=== PATIENT | female | born 1935 | race Caucasian/White ===

== ENCOUNTER 2024-07-17 13:46 | Observation (INO) | payer MEDICARE ==
[~2024-07-17] VITALS: Ht 162.6 cm; Wt 60.0 kg
[~2024-07-17 13:46] MED LIST: ASPI325 PO
[2024-07-17 14:27] LABS: BASOPHILS ABSOLUTE AUTO 0.07 K/mm3 (0.00-0.23); BASOPHILS PERCENT AUTO 1 % (0-2); EOSINOPHILS ABSOLUTE AUTO 0.09 K/mm3 (0.00-0.68); EOSINOPHILS PERCENT AUTO 1 % (0-6); Hematocrit 45.1 % (33.0-51.0); IMMATURE GRAN ABSOLUTE AUTO 0.08 K/mm3 (0.00-0.10); IMMATURE GRAN PERCENT AUTO 1 % (0-1); LYMPHOCYTES ABSOLUTE AUTO 1.13 K/mm3 (0.84-5.20); LYMPHOCYTES PERCENT AUTO 9 % (21-46); MONOCYTES ABSOLUTE AUTO 0.82 K/mm3 (0.16-1.47); MONOCYTES PERCENT AUTO 6 % (4-13); Mean Corpuscular HGB 24.6 pg (26.0-34.0); Mean Corpuscular Volume 79 fL (80-100); Mean Platelet Volume 12.1 fL (9.1-12.4); NEUTROPHILS PERCENT AUTO 83 % (41-73); Platelet Count 350 K/mm3 (150-400); RDW Coefficient Variation 14.9 % (11.7-14.2); RDW Standard Deviation 42.4 fL (35.1-46.3); White Blood Cell Count 13.19 K/mm3 (4.00-11.30)
[2024-07-17 14:41] LABS: Albumin, Blood 2.9 g/dL (3.4-5.0); Albumin/Globulin Ratio 0.7 (0.8-1.8); Bilirubin, Total 0.7 mg/dL (0.1-1.0); Bun/Creatinine Ratio 20.8 (12.0-20.0); Calcium, Blood 9.6 mg/dL (8.5-10.1); Creatinine, Blood 0.63 mg/dL (0.40-1.00); Globulin, Blood 3.9 g/dL (2.2-4.0); Potassium, Blood 4.5 mmol/L (3.5-5.5); Total Protein, Blood 6.8 g/dL (6.4-8.2)
[2024-07-17 16:11] LABS: Source, Urine Clean Catch
[2024-07-17 16:15] LABS: Appearance, Urine Clear (Clear); Bilirubin, Urine Neg (Neg); Blood, Urine 1+ (Neg); Color, Urine Yellow (P-Yellow); Glucose Qualitative, Urine Neg (Neg); Ketones, Urine 3+ (Neg); Leukocyte Esterase, Urine 1+ (Neg); Nitrite, Urine Neg (Neg); Protein, Urine 2+ (Neg); Urobilinogen, Urine NORM (Normal); pH, Urine 6.5 (5.0-8.0)
[2024-07-17 16:24] LABS: Bacteria Mod /hpf; Mucus Light (0-Heavy); Squamous Epithelial Cells Few /hpf (Few)
[2024-07-17] MEDS ORDERED: Morphine Sulfate 4 MG/1 ML Injection IV ONE (17:00)
[2024-07-17] MEDS ORDERED: Ondansetron HCl 2 MG / ML 2ML Vial IV PRN (18:05)
[2024-07-17] MEDS ORDERED: HYDROcodone 5-APAP 325 TAB PO PRN (18:05)
[2024-07-17] MEDS ORDERED: FLU VACC TS2024-25(6MOS UP)/PF 45 MCG/0.5 ML SYRINGE IM SCH (18:10)
[2024-07-17 20:54] VITALS: BP 141/63
[2024-07-17] MEDS ORDERED: Ondansetron 4 MG TAB PO PRN (21:55)
--- NOTE | 2024-07-18 06:21 | NUR ---
SHIFT SUMMARY ARRIVAL TO UNIT 07/17/24 APPROX. 2049. PT REFUSING IV, NO-SLIP SOCKS, OR HOSPITAL GOWN. NO IV ORDER APPROVED BY DR. MUIR. PT STATES SHE USES A CAN AT [facility]. FWW PROVIDED. PT ON FALL PRECAUTIONS DT HX OF FALLS AND CONFUSION. 2228, PT UP TO BATHROOM. EDUCATED ON PULL CORD IN BATHROOM TO ASSIST HER BACK TO BED SAFELY. PT RESPONDED WITH, OKAY THANK YOU. PT STATED SHE USES SMOOTH MOVES TEA TO HELP HER HAVE BOWEL MOVEMENTS, BUT NO HOME MEDICATIONS. NO ALLERGIES. 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 FOR DIET PREFERENCE, PT STATES SHES A MEAT AND POTATOES KIND OF GIRL. BUT I M TRYING TO EAT MORE FRUIT, BUT I PREFER CHOCOLATE ICE CREAM. EDUCATION PROVIDED ON FALL PREVENSION. PT AGREED TO WEAR SO-SLIP SOCKS. PT MEDICATED FOR NAUSEA, AND NOW RESTING COMFORTABLY. PT REFUSED MORNING VITALS. PUSHED PROCESS ENVIRONMENTAL TECHNICIAN AWAY AND TOLD HER LET ME SLEEP. 299, PT UP AND IN CHAIR. CHAIR ALARM ON FOR SAFETY. 399, PT BACK INTO BED WITH ALARM ON FOR SAFETY.
[2024-07-18 07:53] VITALS: BP 118/56
--- NOTE | 2024-07-18 14:21 | NUR ---
PATIENT WAS BECOMING INCREASINGLY MORE ANGRY AND FRUSTRATED WANTING TO GO HOME. PATIENT WAS WALKING UP AND DOWN THE BONDS LOOKING FOR THE ELEVATOR TO LEAVE AND STATED SHE HAS HAD ENOUGH AND WILL NOT WAIT ANY LONGER. ATTEMPTED TO CALL BROTHER TO SEE IF HE WAS LOCAL IN ORDER TO PICK PT UP OR TRY TO CALM HER DOWN OR REASON WITH HER. PT SIGNED AMA FORM AND STATED SHE DID NOT CARE THAT HER BROTHER WAS ON THE PHONE. PT DID NOT HAVE AN IV. TOOK HOSPITAL WALKER AND LEFT TO GO DOWNSTAIRS. NOTIFIED DR. SESAY OF PATIENT LEAVING AMA.
--- NOTE | 2024-07-18 14:37 | NUR ---
PALLIATIVE CARE NURSE UPDATED ME PATIENT WAS GETTING INTO A CAB AND SHE BROUGHT BACK UP HOSPITAL WALKER
--- NOTE | 2024-07-19 12:53 | NUR ---
Attempted to see the patient yesterday for Palliative Care consult. Upon arriving to her room, she was already dressed in her street clothing and had her shoes on. She stated she had been told she was being discharged, and wants to leave "right now." Multiple attempts to calm patient were unsuccessful, and she ultimately ambulated into the parking lot with this RN, stating her intention to "hail a cab or hitchike home." Thankfully, I was able to vocera for security who convinced the patient to return inside to call a cab from the courtesy phone. She did sign AMA paperwork, and did appear to have capacity, she knew her home address, knew the year and president. Today, I reached out to pt's brother who is her contact. He does plan to fly out to see her, in an attempt to connect her with hospice services. He has Palliative Care contact information, and plans to arrive at the patient's home in approximately 3 days.
== END 2024-07-18 14:35 | disposition left against medical advice (07) ==
LOC: ER 13:46 → MEDS 13:47 → ERHOLD 13:47 → MEDS 20:51
PROVIDERS: Physician Assistant; ADMIT Student in an Organized Health Care Education/Training Program
DX: C78.7 Secondary malignant neoplasm of liver and intrahepatic bile duct (principal); C67.9 Malignant neoplasm of bladder, unspecified; C79.51 Secondary malignant neoplasm of bone; R07.81 Pleurodynia; R10.9 Unspecified abdominal pain; R59.1 Generalized enlarged lymph nodes; Z53.29 Procedure and treatment not carried out because of patient's decision for other reasons; Z51.5 Encounter for palliative care; Z87.891 Personal history of nicotine dependence; Z79.82 Long term (current) use of aspirin; Z66 Do not resuscitate
CPT/HCPCS: 74177; 80053; 81001; 83690; 85025; 87086; 96374; 99285-25; A9270; G0378; Q9967